=== PATIENT | male | born 1950 | race Caucasian/White ===

== ENCOUNTER 2018-06-15 15:07 | Emergency (ER) | payer MEDICARE, MEDICAID ==
[2018-06-15 15:25] VITALS: RESP 18; TEMP 98.4
[2018-06-15] MEDS ORDERED: Tdap Vaccine 0.5 ml Vial (10-64 yrs) IM ONE ×2 (15:38→15:44)
--- NOTE | 2018-06-15 15:40 | C.PDOC ---
History Of Present Illness 68 y/o M p/w fall shortly prior to arrival. Patient was drinking alcohol today, fell while getting onto bus. Patient denies any pain, states he is fine. Denies chest pain or dyspnea. - HPI Time Seen by Provider: 06/15/18 15:26 Chief Complaint (Nursing): Trauma Past Medical History Vital Signs: Last Vital Signs Temp 98.4 F 06/15/18 15:19 Pulse 78 06/15/18 15:19 Resp 18 06/15/18 15:19 BP 102/69 06/15/18 15:19 Pulse Ox 92 L 06/15/18 16:59 - Medical History PMH: Arthritis, HTN Family History: States: Unknown Family Hx - Social History Hx Alcohol Use: Yes Hx Substance Use: No - Immunization History Hx Tetanus Toxoid Vaccination: No Hx Influenza Vaccination: No Hx Pneumococcal Vaccination: No Review Of Systems Except As Marked, All Systems Reviewed And Found Negative. Constitutional: Negative for: Fever Cardiovascular: Negative for: Chest Pain Physical Exam - Physical Exam Additional Physical Exam Comments: Constitutional: No acute distress. Head: Normocephalic. Eyes: PERRL. ENT: Moist mucous membranes. Neck: Supple. No midline tenderness. Cardiovascular: Regular rate. Radial pulse 2+ bilaterally. Chest: No tenderness. Respiratory: Clear to auscultation bilaterally. GI: Soft. Nontender. Nondistended. Back: No CVA tenderness. No midline tenderness. Musculoskeletal: No tenderness or swelling of extremities. FROM x 4. Pelvis stable. Skin: No rash. Abrasion to forehead and nose and left forearm. Neurologic: Alert, no focal deficit. ED Course And Treatment O2 Sat by Pulse Oximetry: 92 Medical Decision Making Medical Decision Making: Patient declined any pain medication. Head CT IMPRESSION: No evidence of acute intracranial hemorrhage intracranial collection mass effect or midline shift. Mild atrophy and gqic-at-kdiurerz white matter changes likely represent chronic microvascular ischemic disease. XR no fracture. Wounds dressed with antibiotic ointment and gauze, no wound edges requiring suture repair. Disposition - Disposition Referrals: Ej Vaz MD [Medical Doctor] - Disposition: HOME/ ROUTINE Disposition Time: 17:16 Condition: STABLE Instructions: Minor Head Injury Forms: [employer] ([employer]) - Clinical Impression Clinical Impression: Head injury, Abrasion
--- NOTE | 2018-06-15 16:56 | CT ---
Date of service: 06/15/2018 PROCEDURE: CT HEAD WITHOUT CONTRAST. HISTORY: head injury COMPARISON: None available. TECHNIQUE: Axial computed tomography images were obtained through the head/brain without intravenous contrast. Radiation dose: Total exam DLP = 922.31 mGy-cm. This CT exam was performed using one or more of the following dose reduction techniques: Automated exposure control, adjustment of the mA and/or kV according to patient size, and/or use of iterative reconstruction technique. FINDINGS: HEMORRHAGE: No intracranial hemorrhage. BRAIN: No mass effect or edema. Atrophy and chronic microvascular white matter ischemic disease are noted. VENTRICLES: Unremarkable. No hydrocephalus. CALVARIUM: Unremarkable. PARANASAL SINUSES: Unremarkable as visualized. No significant inflammatory changes. MASTOID AIR CELLS: Unremarkable as visualized. No inflammatory changes. OTHER FINDINGS: Left frontal scalp soft tissue swelling. IMPRESSION: No evidence of acute intracranial hemorrhage intracranial collection mass effect or midline shift. Mild atrophy and ahqk-tm-hvfbmmnd white matter changes likely represent chronic microvascular ischemic disease.
--- NOTE | 2018-06-15 17:11 | RAD ---
Date of service: 06/15/2018 PROCEDURE: Radiographs of the Left Forearm HISTORY: fall, forearm injury COMPARISON: None available. TECHNIQUE: Frontal and lateral views obtained. FINDINGS: BONES: No fracture or destructive lesion. JOINT SPACES: Unremarkable. OTHER FINDINGS: Enthesopathy along the lateral humeral condyle. IMPRESSION: Unremarkable radiographs of the left forearm.
[2018-06-15] MEDS ORDERED: Bacitracin 500 Units/gm Oint Foilpak UD TOP ONE (17:20)
[2018-06-15] MEDS ORDERED: Bacitracin 500 Units/gm Oint Foilpak UD ONE (17:34)
[2018-06-15 17:35] VITALS: BP 120/77; PULSE 68; O2SAT 95
== END 2018-06-15 17:48 | disposition home or self-care (01) ==
LOC: C.ER 15:07
DX: S09.90XA Unspecified injury of head, initial encounter (principal); S00.81XA Abrasion of other part of head, initial encounter; W19.XXXA Unspecified fall, initial encounter; I10 Essential (primary) hypertension; Z23 Encounter for immunization